=== PATIENT | male | born 1985 | race Native Hawaiian/Other Pacific Islander ===

== ENCOUNTER 2018-10-16 15:43 | Emergency (ER) | payer OTHER ==
[2018-10-16 16:04] VITALS: RESP 18; TEMP 98.1
[2018-10-16 16:40] LABS: BASO # 0.04 K/mm3 (0.0-2.0); BASO % 1.1 % (0.0-3.0); EOS # 0.1 (0.0-0.7); EOS % 2.4 % (1.5-5.0); HEMOGLOBIN 15.2 g/dL (14.0-18.0); LYMPH # 1.4 (1.2-3.4); LYMPH % 36.7 % (22.0-35.0); MEAN CELL VOLUME 87.5 fl (80.0-105.0); MEAN CORPUSCULAR HEMOGLOBIN 28.9 pg (25.0-35.0); MEAN PLATELET VOLUME 10.2 fl (7.0-11.0); MONO # 0.2 (0.1-0.6); MONO % 5.9 % (1.0-6.0); RBC 5.26 10^6/uL (3.5-6.1); RED CELL DISTRIBUTION WIDTH 12.7 % (11.5-14.5); WHITE BLOOD COUNT 3.8 10^3/uL (4.5-11.0)
[2018-10-16 16:48] LABS: ALB/GLOB RATIO 1.4 (1.1-1.8); ALBUMIN 4.3 g/dL (3.0-4.8); ALT/SGPT 37 U/L (7-56); AST/SGOT 32 U/L (17-59); BLOOD UREA NITROGEN 21 mg/dL (7-21); CALCIUM 9.7 mg/dL (8.4-10.5); GFR NON-AFRICAN AMERICAN > 60
--- NOTE | 2018-10-16 16:50 | RAD ---
HISTORY: shortness of breath COMPARISON: None available. TECHNIQUE: Chest, one view. FINDINGS: LUNGS: No focal consolidation. Please note that chest x-ray has limited sensitivity for the detection of pulmonary masses. PLEURA: No significant pleural effusion identified. No definite pneumothorax . CARDIOVASCULAR: The cardiomediastinal silhouette appears within normal limits of size. No significant atherosclerotic calcification present. OSSEOUS STRUCTURES: No acute osseous abnormality identified. VISUALIZED UPPER ABDOMEN: Unremarkable. OTHER FINDINGS: None. IMPRESSION: No acute findings identified.
[2018-10-16 16:59] LABS: TROPONIN I < 0.01 ng/mL
[2018-10-16 17:16] VITALS: BP 126/80; PULSE 80; O2SAT 100
--- NOTE | 2018-10-16 18:23 | ED PDOC ---
Arrival/HPI - General Chief Complaint: Shortness Of Breath Time Seen by Provider: 10/16/18 15:47 Historian: Patient - History of Present Illness Narrative History of Present Illness (Text): 10/16/18 15:47 James Hubbard is a 32 year old male, with no significant past medical history, who presents to the emergency department complaining of intermittent shortness of breath since 1 week. Patient also notes intermittent sharp chest pain since 1 week. Patient informs vising PMD recently for current complaint and denies recent travel / sick contacts. Patient denies fevers, chills, headache, dizziness, cough, abdominal pain, nausea, vomiting, diarrhea, dysuria, hematuria, neck pain, or any other complaints. Time/Duration: 1 week Symptom Course: Unchanged Activities at Onset: Light Context: Home Past Medical History - Provider Review Nursing Documentation Reviewed: Yes - Infectious Disease Hx of Infectious Diseases: None - Cardiac Hx Cardiac Disorders: No - Neurological Hx Neurological Disorder: No - Renal Hx Renal Disorder: No - Endocrine/Metabolic Hx Endocrine Disorders: No - Genitourinary/Gynecological Hx Genitourinary Disorders: No - Psychiatric Hx Substance Use: No - Anesthesia Hx Anesthesia: No Family/Social History - Physician Review Nursing Documentation Reviewed: Yes Family/Social History: Unknown Family HX Smoking Status: Unknown If Ever Smoked Hx Alcohol Use: No Hx Substance Use: No Allergies/Home Meds Allergies/Adverse Reactions: Allergies No Known Allergies Allergy (Unverified 10/16/18 16:01) Review of Systems - Physician Review All systems were reviewed & negative as marked: Yes - Review of Systems Constitutional: absent: Fevers, Other (chills) Respiratory: SOB. absent: Cough Cardiovascular: Chest Pain Gastrointestinal: absent: Abdominal Pain, Diarrhea, Nausea, Vomiting Genitourinary Male: absent: Dysuria, Hematuria Musculoskeletal: absent: Neck Pain Neurological: absent: Headache, Dizziness Physical Exam Vital Signs Temp Pulse Resp BP Pulse Ox 10/16/18 17:16 80 18 126/80 100 10/16/18 16:03 98.1 F 82 18 126/84 99 10/16/18 16:00 100 - Systems Exam Head: Present: Atraumatic, Normocephalic Pupils: Present: PERRL Extroacular Muscles: Present: EOMI Conjunctiva: Present: Normal Mouth: Present: Moist Mucous Membranes Neck: Present: Normal Range of Motion Respiratory/Chest: Present: Clear to Auscultation, Good Air Exchange. No: Respiratory Distress, Accessory Muscle Use, Wheezes, Rales, Rhonchi Cardiovascular: Present: Regular Rate and Rhythm, Normal S1, S2. No: Murmurs, Rub, Gallop Abdomen: Present: Normal Bowel Sounds. No: Tenderness, Distention, Peritoneal Signs, Rebound, Guarding Back: Present: Normal Inspection Upper Extremity: Present: Normal Inspection. No: Cyanosis, Edema Lower Extremity: Present: Normal Inspection. No: Edema Neurological: Present: GCS=15, CN II-XII Intact, Speech Normal Skin: Present: Warm, Dry, Normal Color. No: Rashes Psychiatric: Present: Alert, Oriented x 3, Normal Insight, Normal Concentration Medical Decision Making ED Course and Treatment: 10/16/18 16:52 Impression: Patient is a 32 year old male, with no significant past medical history, who presents to the emergency department complaining of intermittent shortness of breath and sharp chest pain since 1 week. Plan: -- EKG -- Labs -- Chest X-Ray -- Tylelol -- Reassess and disposition Prior Visits: Notes and results from previous visits were reviewed. Patient was last seen in the emergency department on [facility] Notes: 10/16/18 17:[address] Miller; patient is cleared to home. He will call patient tomorrow to arrange appointment for the end of the week. - Lab Interpretations Lab Results: D-Dimer, Quantitative < 200 ng/mlDDU (0-243) 10/16/18 16:20 Troponin I < 0.01 ng/mL 10/16/18 16:20 Total Bilirubin 0.3 mg/dL (0.2-1.3) 10/16/18 16:20 AST 32 U/L (17-59) 10/16/18 16:20 ALT 37 U/L (7-56) 10/16/18 16:20 Alkaline Phosphatase 54 U/L (38-126) 10/16/18 16:20 Total Protein 7.4 g/dL (5.8-8.3) 10/16/18 16:20 Albumin 4.3 g/dL (3.0-4.8) 10/16/18 16:20 Globulin 3.2 gm/dL 10/16/18 16:20 Albumin/Globulin Ratio 1.4 (1.1-1.8) 10/16/18 16:20 - RAD Interpretation Radiology Orders: 10/16/18 16:01 CHEST PORTABLE [RAD] Stat - EKG Interpretation EKG Interpretation (Text): 10/16/18 18:29 Reviewed EKG, shows: NSR at 77 BPM. Interpreted by ED Physician: Yes Type: 12 lead EKG - Medication Orders Current Medication Orders: Discontinued Medications Acetaminophen (Tylenol 325mg Tab) 650 mg PO STAT STA Stop: 10/16/18 16:58 Last Admin: 10/16/18 17:12 Dose: 650 mg - Scribe Statement The provider has reviewed the documentation as recorded by the Scribe Fredy Caraballo All medical record entries made by the Scribe were at my direction and personally dictated by me. I have reviewed the chart and agree that the record accurately reflects my personal performance of the history, physical exam, medical decision making, and the department course for this patient. I have also personally directed, reviewed, and agree with the discharge instructions and disposition. Disposition/Present on Arrival - Present on Arrival Any Indicators Present on Arrival: Yes History of DVT/PE: No History of Uncontrolled Diabetes: No Urinary Catheter: No History of Decub. Ulcer: No History Surgical Site Infection Following: None - Disposition Have Diagnosis and Disposition been Completed?: No Diagnosis: Atypical chest pain Disposition: HOME/ ROUTINE Disposition Time: 17:00 Condition: GOOD Discharge Instructions (ExitCare): Chest Pain That Is Not Caused by the Heart (DC) Additional Instructions: JAMES HUBBARD, thank you for letting us take care of you today. The emergency medical care you received today was directed at your acute symptoms. If you were prescribed any medication, please fill it and take as directed. It may take several days for your symptoms to resolve. Return to the Emergency Department if your symptoms worsen, do not improve, or if you have any other problems. Please contact your doctor or call one of the physicians/clinics you have been referred to that are listed on the Patient Visit Information form that is included in your discharge packet. Bring any paperwork you were given at discharge with you along with any medications you are taking to your follow up visit. Our treatment cannot replace ongoing medical care by a primary care provider outside of the emergency department. Thank you for allowing the [facility] team to be part of your care today. Follow up with Dr. Acevedo in 2-3 days for re-evaluation and further management. Referrals: Lorena Acevedo MD [Primary Care Provider] - Follow up with primary Forms: [employer] (Yoruba)
--- NOTE | 2018-10-16 18:27 | CARD ---
APPROVED REPORT Date of service: 10/16/2018 EKG Measurement Heart [id number] <Conclusion> Normal sinus rhythm with sinus arrhythmia Septal infarct, age undetermined Abnormal ECG
== END 2018-10-16 17:17 | disposition home or self-care (01) ==
LOC: ED 15:43
DX: R07.89 Other chest pain (principal)